=== PATIENT | female | born 1995 | race Caucasian/White ===

== ENCOUNTER 2020-05-19 09:25 | Outpatient (CLI) | payer OTHER, SELFPAY ==
[2020-05-19 11:42] LABS: Hepatitis B Surface Anti Res Indeterminate
== END 2020-05-19 09:26 | disposition home or self-care (01) ==
PROVIDERS: PCP Internal Medicine; Visit Provider Surgery
DX: Z78.9 Other specified health status (principal)
CPT/HCPCS: 36415; 86706

== ENCOUNTER 2020-12-17 11:13 | Outpatient (CLI) | payer OTHER, SELFPAY ==
--- NOTE | ~2020-12-17 | US_ITS ---
US breast RT complete DATE: 12/17/2020 11:52 INDICATION: Right breast lump for 3 to 4 weeks TECHNIQUE: Real-time imaging of the complete right breast COMPARISON: None FINDINGS: No solid mass lesion, suspicious shadowing, cyst or other significant sonographic abnormali ty is identified. IMPRESSION: BI-RADS Category 1: Negative Recommendation: Routine screening beginning at age 40 Reviewed, dictated and finalized at [facility]. Reviewed, dictated and finalized at [facility].
== END 2020-12-17 11:14 | disposition home or self-care (01) ==
PROVIDERS: PCP Internal Medicine; Visit Provider Nurse Practitioner Obstetrics & Gynecology
DX: N63.10 Unspecified lump in the right breast, unspecified quadrant (principal)
CPT/HCPCS: 76641